=== PATIENT | female | born 1965 | race Caucasian/White ===

== ENCOUNTER → 2017-01-26 | Outpatient (CLI) | payer OTHER ==
[~2017-01-26] MED LIST: CALCIUM 500 + D1 TAB PO; CYMBALTA PO; DULOXETINE HCL60 MG PO; GABAPENTIN600 MG PO; IMITREX PO; LEVOTHYROXINE100 MCG PO; LOSARTAN-HCTZ1 EAC2 PO; MELOXICAM15 MG PO; PROTONIX PO; QNASL8.7 GM NS; REQUIP0.5 MG PO; SUMATRIPTAN SU100 MG PO; SYNTHROID PO; TOPAMAX PO; ZEGERID40 MG/PKT PO; ZYRTEC10 M2 PO
[2017-01-26 12:19] LABS: URINE APPEARANCE CLOUDY; URINE BILIRUBIN NEG (NEG); URINE BLOOD NEG (NEG); URINE COLOR YELLOW; URINE GLUCOSE NEG (NEG); URINE KETONE NEG (NEG); URINE LEUKOCYTE ESTERASE TRACE (NEG); URINE NITRATE NEG (NEG); URINE PH 5.5 (5-8); URINE PROTEIN NEG (NEG); URINE SPECIFIC GRAVITY 1.017 (1.003-1.035); URINE UROBILINOGEN 0.2 MG/DL (NEG)
[2017-01-26 12:21] LABS: CULTURE INDICATED? YES; URINE BACTERIA AUWI 1+ (NEGATIVE)
[2017-01-26 12:42] LABS: URINE SOURCE CLEAN CATCH; URINE SQUAMOUS EPITHELIAL CELL OCCAS /[HPF]
[2017-01-26 12:43] LABS: U HYALINE CASTS AUWI 0-2 /[LPF]
== END | disposition home or self-care (01) ==
LOC: CLAB 11:48
PROVIDERS: Specialist
DX: R89.9 Unspecified abnormal finding in specimens from other organs, systems and tissues (principal)
CPT/HCPCS: 81003; 87086